=== PATIENT | female | born 1970 | race African-American/Black ===

== ENCOUNTER 2021-02-11 17:19 | Emergency (ER) | payer MEDICARE, OTHER ==
[2021-02-11 21:12] LABS: Bacteria,Urine 1+ /HPF (Negative); Bilirubin,Urine NEG (Negative); Blood,Urine NEG (Negative); Color,Urine Straw (Yellow); Mucus,Urine FEW /HPF; Protein,Urine <15 mg/dL mg/dL (Negative); Urobilinogen,Urine < 2.0 mg/dL (<2.0)
[2021-02-11 21:14] LABS: Basophils % (Auto) 0.5 % (0.0-1.8); Eosinophils # (Auto) 0.1 K/mm3 (0.0-0.4); Eosinophils % (Auto) 1.6 % (0.0-4.3); Hematocrit 35.4 % (30.3-42.9); Hemoglobin 11.3 gm/dl (10.1-14.3); Lymphocytes # (Auto) 2.6 K/mm3 (1.2-5.4); Lymphocytes % (Auto) 41.6 % (13.4-35.0); Mean Corpuscular HGB Conc 32 % (30-34); Mean Corpuscular Volume 87 fl (79-97); Monocytes # (Auto) 0.6 K/mm3 (0.0-0.8); Monocytes % (Auto) 9.3 % (0.0-7.3); Platelet Count 365 K/mm3 (140-440); Red Blood Count 4.07 M/mm3 (3.65-5.03); Red Cell Distribution Width 13.8 % (13.2-15.2)
[2021-02-11 21:25] LABS: Alanine Aminotransferase 16 units/L (7-56); Albumin 4.9 g/dL (3.9-5); Blood Urea Nitrogen 20 mg/dL (7-17); Calcium 9.6 mg/dL (8.4-10.2); Hemolysis Index 20
[2021-02-11 21:27] LABS: BUN/Creatinine Ratio 33
[2021-02-11] MEDS ORDERED: ONDANSETRON 4 MG/2 ML INJ IV ONE (22:58)
[2021-02-11] MEDS ORDERED: MORPHINE 4 MG/1 ML INJ IV ONE (22:58)
[2021-02-11] MEDS ORDERED: FAMOTIDINE 20 MG/2 ML INJ IV ONE (22:58)
--- NOTE | 2021-02-12 01:32 | Cat Scan Report ---
CT OF THE ABDOMEN AND PELVIS WITH INTRAVENOUS CONTRAST INDICATION / CLINICAL INFORMATION: Generalized abdominal pain. TECHNIQUE: The patient received 100 cc Omnipaque [address] scans at this location are performed using CT dose reduction for ALARA by means of automated exposure control. COMPARISON: None available. FINDINGS: ABDOMEN: The gallbladder is surgically absent. There is a subcentimeter cyst in the right lobe of the liver. The bile ducts, pancreas, spleen, adrenal glands, kidneys and bowel demonstrate no significan t abnormality. No acute vascular abnormality is seen. There is no evidence of adenopathy. The lung ba ses are clear. PELVIS: There is a 4.5 cm fibroid in the right uterine body which is intramural/submucosal. I see no evidence of adnexal mass or free fluid. A normal appendix is present and there is no evidence of dive rticulitis. I do not identify a hernia. There is moderate degenerative disc disease at L4-5. IMPRESSION: 1. No acute abnormality is identified. 2. 4.5 cm uterine fibroid. Signer Name: Nixon Gardner MD Signed: 02/12/2021 1:27 AM Workstation Name: [id number]
--- NOTE | 2021-02-12 01:47 | Emergency Department Report ---
ED Abdominal Pain HPI - General Chief Complaint: Abdominal Pain Stated Complaint: ABDOMINAL PAIN Source: patient Mode of arrival: Ambulatory Limitations: No Limitations, Language Barrier - History of Present Illness Initial Comments: Patient is a 50-year-old with past medical history of hypertension and who is s/p cholecystectomy presents to the ED with complaint of acute onset persistent diffuse abdominal pain and headache for the last 2 weeks, worse in the last 4 days. Patient states that she was recently evaluated for headache with a head CT scan without contrast and is scheduled to be evaluated by a neurologist in the next 2 weeks. Patient states that her headache and abdominal pain have worsened in the last 24 hours. Patient denies nausea, vomiting, diarrhea, dy suria, urinary frequency and urgency, low back pain, chest pain, shortness of breath, fever, chills, cough, change in vision, dizziness, syncope or neck pain, vaginal bleeding or vaginal discharge. MD Complaint: abdominal pain -: week(s) (2) Location: diffuse Radiation: suprapubic Migration to: no migration Severity: severe Severity scale (0 -10): 7 Quality: cramping, sharp Consistency: constant Improves With: nothing Worsens With: nothing Associated Symptoms: denies other symptoms. denies: nausea, vomiting, diarrhea, fever, chills, constipation, dysuria, hematochezia, melena, anorexia, syncope - Related Data Previous Rx's Medication Instructions Recorded Last Taken Type Butalb/Acetamin/Caff 50-325-40 1 - 2 tab PO Q6HR PRN #15 tab 02/12/21 Unknown Rx [Fioricet 50-325-40] Famotidine [Pepcid] 20 mg PO BID #60 tablet 02/12/21 Unknown Rx Naproxen 500 mg PO Q12H PRN #24 tablet 02/12/21 Unknown Rx Ondansetron [Zofran Odt] 4 mg PO Q6HR PRN #15 tab.rapdis 02/12/21 Unknown Rx Allergies Allergy/AdvReac Type Severity Reaction Status Date / Time No Known Allergies Allergy Verified 02/11/21 17:46 ED Review of Systems ROS: Stated complaint: ABDOMINAL PAIN Other details as noted in HPI Constitutional: denies: chills, fever Eyes: denies: eye pain, eye discharge, vision change ENT: denies: ear pain, throat pain Respiratory: denies: cough, shortness of breath, wheezing Cardiovascular: denies: chest pain, palpitations Endocrine: no symptoms reported Gastrointestinal: abdominal pain. denies: nausea, vomiting, diarrhea, hematemesis Genitourinary: denies: urgency, dysuria, discharge Musculoskeletal: denies: back pain, joint swelling, arthralgia Skin: denies: rash, lesions Neurological: headache. denies: weakness, paresthesias Psychiatric: denies: anxiety, depression Hematological/Lymphatic: denies: easy bleeding, easy bruising ED Past Medical Hx - Past Medical History Hx Hypertension: Yes - Medications Home Medications: Home Medications Medication Instructions Recorded Confirmed Last Taken Type Butalb/Acetamin/Caff 50-325-40 1 - 2 tab PO Q6HR PRN #15 tab 02/12/21 Unknown Rx [Fioricet 50-325-40] Famotidine [Pepcid] 20 mg PO BID #60 tablet 02/12/21 Unknown Rx Naproxen 500 mg PO Q12H PRN #24 tablet 02/12/21 Unknown Rx Ondansetron [Zofran Odt] 4 mg PO Q6HR PRN #15 tab.rapdis 02/12/21 Unknown Rx ED Physical Exam - General Limitations: No Limitations, Language Barrier General appearance: alert, in no apparent distress - Head Head exam: Present: atraumatic, normocephalic, normal inspection - Eye Eye exam: Present: normal appearance, PERRL, EOMI Pupils: Present: normal accommodation - ENT ENT exam: Present: normal exam, normal orophraynx, mucous membranes moist, TM's normal bilaterally, normal external ear exam - Neck Neck exam: Present: normal inspection, full ROM - Respiratory Respiratory exam: Present: normal lung sounds bilaterally. Absent: respiratory distress, wheezes, rhonchi, stridor, chest wall tenderness, accessory muscle use, decreased breath sounds, prolonged expiratory - Cardiovascular Cardiovascular Exam: Present: regular rate, normal rhythm, normal heart sounds. Absent: systolic murmur, diastolic murmur, rubs, gallop - GI/Abdominal GI/Abdominal exam: Present: soft, tenderness (Palpable mild diffuse abdominal tenderness), normal bowel sounds. Absent: distended, guarding, rebound, hyperactive bowel sounds, hypoactive bowel sounds, organomegaly - Extremities Exam Extremities exam: Present: normal inspection, full ROM, normal capillary refill - Back Exam Back exam: Present: normal inspection, full ROM. Absent: tenderness, CVA tenderness (R), CVA tenderness (L), muscle spasm, paraspinal tenderness, vertebral tenderness - Neurological Exam Neurological exam: Present: alert, oriented X3, CN II-XII intact, normal gait, reflexes normal - Psychiatric Psychiatric exam: Present: normal affect, normal mood - Skin Skin exam: Present: warm, dry, intact, normal color. Absent: rash ED Course Vital Signs 02/11/21 02/11/21 17:35 23:58 Temperature 97.8 F Pulse Rate 66 Respiratory 15 16 Rate Blood Pressure 141/89 O2 Sat by Pulse 100 Oximetry ED Medical Decision Making - Lab Data Result diagrams: 02/11/21 20:52 02/11/21 20:52 - Radiology Data Radiology results: report reviewed, image reviewed [place] [id number] Cat Scan Report Signed Patient: ELHAM ROOT MR#: [id number] : 1970 Acct:[id number] Age/Sex: 50 / F ADM Date: 02/11/21 Loc: ED Attending Dr: Ordering Physician: DICK CHAVEZ Date of Service: 02/11/21 Procedure(s): CT abdomen pelvis w con Accession Number(s): [id number] cc: DICK CHAVEZ CT OF THE ABDOMEN AND PELVIS WITH INTRAVENOUS CONTRAST INDICATION / CLINICAL INFORMATION: Generalized abdominal pain. TECHNIQUE: The patient received 100 cc Omnipaque [address] scans at this location are performed using CT dose reduction for ALARA by means of automated exposure control. COMPARISON: None available. FINDINGS: ABDOMEN: The gallbladder is surgically absent. There is a subcentimeter cyst in the right lobe of the liver. The bile ducts, pancreas, spleen, adrenal glands, kidneys and bowel demonstrate no significant abnormality. No acute vascular abnormality is seen. There is no evidence of adenopathy. The lung bases are clear. PELVIS: There is a 4.5 cm fibroid in the right uterine body which is intramural/submucosal. I see no evidence of adnexal mass or free fluid. A normal appendix is present and there is no evidence of diverticulitis. I do not identify a hernia. There is moderate degenerative disc disease at L4-5. IMPRESSION: 1. No acute abnormality is identified. 2. 4.5 cm uterine fibroid. Signer Name: Nixon Gardner MD Signed: 02/12/2021 1:27 AM Workstation Name: [id number] Transcribed By: RT Dictated By: Nixon Gardner MD Electronically Authenticated By: Nixon Gardner MD Signed Date/Time: 02/12/21126 DD/ 3 TD/TT: Print Cancel - Medical Decision Making This is a 50-year-old with past medical history of hypertension and who is s/p cholecystectomy presents to the ED with complaint of acute onset persistent diffuse abdominal pain and headache for the last 2 weeks, worse in the last 4 days. Patient states that she was recently evaluated for headache with a head CT scan without contrast and is scheduled to be evaluated by a neurologist in the next 2 weeks. Patient states that her headache and abdominal pain have worsened in the last 24 hours. In the ED, patient is alert and oriented x3 and is not in any distress. Patient however appears to be in pain. Patient was treated for pain in the ED and also received normal saline 1 L IV bolus x1 as well as antacids and antiemetics. On reevaluation, patient's pain is well controlled medication. Lab test results were reviewed and are all non actionable. Abdomen pelvis CT scan with contrast showed no acute abnormalities except a 4.5 cm uterine fibroid. Patient was therefore discharged home on pain medications and advised to follow-up with her primary care physician as previously scheduled and also follow-up with her neurologist as previously scheduled. Patient was advised return to the ED immediately if symptoms get worse. - Differential Diagnosis Small bowel obstruction; pancreatitis; appendicitis; UTI; uterine fibroids; Critical care attestation.: If time is entered above; I have spent that time in minutes in the direct care of this critically ill patient, excluding procedure time. ED Disposition Clinical Impression: Abdominal pain Qualifiers: Abdominal location: generalized Qualified Code(s): R10.84 - Generalized abdominal pain Uterine fibroid Qualifiers: Uterine leiomyoma location: unspecified location Qualified Code(s): D25.9 - Leiomyoma of uterus, unspecified Chronic headache disorder Qualifiers: Headache type: unspecified Intractability: not intractable Qualified Code(s): R51.9 - Headache, unspecified; G89.29 - Other chronic pain Disposition: 01 HOME / SELF CARE / HOMELESS Is pt being admited?: No Does the pt Need Aspirin: No Condition: Stable Instructions: Abdominal Pain (ED), Uterine Fibroids, [id number], Abdominal Pain, Adult, [id number], Pain Medicine Instructions, [id number] Additional Instructions: All lab test results were reviewed and are all nonactionable. Abdomen pelvis CT scan with contrast showed no acute abnormalities except for a 4.5 cm uterine fibroid. Therefore take medications with food, drink plenty of fluids and follow-up with your primary care physician in 7 to 10 days for reevaluation. Return to the ED immediately if symptoms get worse. Prescriptions: Butalb/Acetamin/Caff 50-325-40 [Fioricet 50-325-40] 1 - 2 tab PO Q6HR PRN #15 tab PRN Reason: Headache Naproxen 500 mg PO Q12H PRN #24 tablet PRN Reason: Pain , Severe (7-10) Famotidine [Pepcid] 20 mg PO BID #60 tablet Ondansetron [Zofran Odt] 4 mg PO Q6HR PRN #15 tab.rapdis PRN Reason: Nausea Referrals: ACUÑANERISSA CHI, MD [Primary Care Provider] - 3-5 Days Time of Disposition: 01:48 Print Language: ARABIC
[2021-02-12 03:32] VITALS: BP 138/80
== END 2021-02-12 02:38 | disposition home or self-care (01) ==
LOC: ED 17:19
DX: D25.9 Leiomyoma of uterus, unspecified (principal); R10.84 Generalized abdominal pain; R51.9 Headache, unspecified; G89.29 Other chronic pain; I10 Essential (primary) hypertension
CPT/HCPCS: 36415; 74177; 80053; 81001; 83690; 85025; 87086; 96374; 96375; 99284; J2270; J2405; J3490; Q9967